=== PATIENT | female | born 1975 | race Hispanic/Latino ===

== ENCOUNTER 2017-09-10 13:37 | Outpatient (CLI) | payer BC ==
[2017-09-10 14:18] LABS: #Basophils 0.1 thou/uL (0.0-0.2); #Eosinphils 0.1 thou/uL (0.0-0.7); #Lymphocytes 2.3 thou/uL (1.20-3.40); #Monocytes 0.4 thou/uL (0.11-0.59); #Neutrophils 5.3 thou/uL (1.40-6.50); %Basophils 0.7 % (0.0-1.0); %Eosinophils 0.8 % (0.0-10.0); %Lymphocytes 28.5 % (21.0-51.0); %Monocytes 4.6 % (0.0-10.0); Hematocrit 38.7 % (36.0-47.0); Red Blood Cell (RBC) Count 4.11 mill/uL (4.20-5.40); White Blood Cell (WBC) Count 8.1 thou/uL (4.8-10.8)
[2017-09-10 14:46] LABS: ALT (SGPT) 18 U/L (8-55); AST (SGOT) 24 U/L (5-34); Alkaline Phosphatase 104 U/L (40-150); Anion Gap 10 mmol/L (10-20); BUN (Urea Nitrogen) 12 mg/dL (7.0-18.7); Bilirubin, Total 0.4 mg/dL (0.2-1.2); Calc. Creatinine Clearance 0 mL/min (70-130); Calcium 9.1 mg/dL (7.8-10.44); Carbon Dioxide 27 mmol/L (22-29); Chloride 107 mmol/L (98-107); Estimated GFR-MDRD 82; Globulin 2.6 g/dL (2.4-3.5); Protein, Total 6.8 g/dL (6.0-8.3)
== END 2017-09-10 13:38 | disposition home or self-care (01) ==
LOC: LABBT 13:37
PROVIDERS: ATTEND Surgery
DX: Z01.812 Encounter for preprocedural laboratory examination (principal); K42.9 Umbilical hernia without obstruction or gangrene
CPT/HCPCS: 80053; 85025

== ENCOUNTER 2017-09-17 07:32 | Day surgery (SDC) | payer BC ==
[2017-09-10 14:07] VITALS: BMI 22.9
[2017-09-17] MEDS ORDERED: CEFAZOLIN/Water 2 GM/20 ML SYRINGE ONE (07:51)
[2017-09-17] MEDS ORDERED: Midazolam HCl 2 mg/2 ml Vial ONE (09:26)
[2017-09-17] MEDS ORDERED: Fentanyl 100 MCG/2 ML VIAL ONE ×2 (09:26→10:59)
[2017-09-17] MEDS ORDERED: Bupivacaine/Epinephrine 0.25% 30 ML VIAL ONE (09:28)
--- NOTE | 2017-09-17 10:32 | OP ---
PREOPERATIVE DIAGNOSIS: Umbilical hernia. SURGEON: Harshal Zuluaga M.D. PROCEDURE PERFORMED: Umbilical hernia repair with mesh. INDICATIONS: A 42-year-old female with a painful umbilical hernia. FINDINGS: We found a 1.2 cm defect, 4.6 cm mesh used. DESCRIPTION OF PROCEDURE: After informed consent was obtained, [facility] and given general mask anesthesia, placed in the supine position. The abdomen was prepped and draped in the usual fashion. Local anesthesia infiltrated subcutaneously and deep and a subumbilica l incision was performed. The subcu divided sharply. The hernia sac was dissected from surrounding subcutaneous tissue sharply down to the fascia, then excised. The contents reduced. Reduction was m aintained utilizing 4.6 cm mesh. Hemostasis achieved with electrocautery. The mesh was secured to t he abdominal fascia with interrupted 0 Ethibond. The umbilical skin was then sutured to the fascia w ith interrupted 3-0 Vicryl to restore umbilical contour, and the skin of the umbilicus closed with in terrupted 4-0 Vicryl. Steri-Strips applied. Sterile bandage applied. The patient tolerated the pro cedure well and transferred to recovery in good condition. Sponge and needle count verified correct x2.
[2017-09-17] MEDS ORDERED: HYDROcodone/Acetaminophen 5/325 mg Tablet ONE (12:00)
[2017-09-17] MEDS ORDERED: Lidocaine 1% PF 5 ML VIAL ONE (14:27)
[2017-09-17] MEDS ORDERED: Ondansetron HCl/PF 4 MG/2 ML Vial ONE (14:27)
[2017-09-17] MEDS ORDERED: Dexamethasone 20 MG/5 ML VIAL ONE (14:27)
[2017-09-17] MEDS ORDERED: Propofol 200 MG/20 ML VIAL ONE (14:27)
== END 2017-09-17 13:35 | disposition home or self-care (01) ==
LOC: SDC 07:32
PROVIDERS: ATTEND Surgery
PROC: 0WUF0JZ Supplement Abdominal Wall with Synthetic Substitute, Open Approach (ICD-10-PCS; principal; 2017-09-17)
DX: K42.9 Umbilical hernia without obstruction or gangrene (principal); Z90.710 Acquired absence of both cervix and uterus; Z90.49 Acquired absence of other specified parts of digestive tract; Z98.890 Other specified postprocedural states
CPT/HCPCS: 96374; C1781; J1100; J2001; J2250; J2405; J2704; J3010

== ENCOUNTER 2018-05-07 13:09 | Outpatient (CLI) | payer BC | END 2018-05-07 13:10 | disposition home or self-care (01) | LOC: BICMAMMO 13:09 | PROVIDERS: ATTEND Physician Assistant | DX: Z12.31 Encounter for screening mammogram for malignant neoplasm of breast (principal) | CPT/HCPCS: 77063; 77067 ==

== ENCOUNTER 2019-08-28 13:40 | Outpatient (CLI) | payer BC ==
--- NOTE | 2019-08-28 14:29 | ULT ---
TRANSABDOMINAL PELVIC ULTRASOUND: TECHNIQUE: Transabdominal imaging of the pelvis is performed. Ovaries are interrogated with grayscale, color william w, Doppler imaging and spectral wave. HISTORY: Previous partial hysterectomy. Pelvic pain. FINDINGS: Uterus is not appreciated. No masses or fluid collections in the pelvis. Right ovary: Normal cortical echotexture, measuring 1.8 x 2.4 x 2.7 cm. Left ovary: Normal echotexture, measuring 2.0 x 2.6 x 2.5. Ovarian Doppler: Vascular flow to both ovaries. IMPRESSION: Unremarkable pelvic ultrasound. Transcribed Date/Time: 08/28/2019 2:32 PM
--- NOTE | 2019-08-28 15:02 | MMO ---
Bilateral MAMMO Bilat Screen [facility]. CLINICAL HISTORY: Patient is 44 years old and is seen for screening. The patient has no family history of breast cancer. The patient has no personal history of cancer. VIEWS: The views performed were: bilateral craniocaudal with tomosynthesis and bilateral mediolateral oblique with tomosynthesis. FILMS COMPARED: The present examination has been compared to prior imaging studies performed at [facility] on 02/27/2013 and 05/07/2018. This study has been interpreted with the assistance of computer-aided detection. MAMMOGRAM FINDINGS: The breasts are heterogeneously dense, which could obscure a lesion on mammography. There are no suspicious masses, suspicious calcifications, or new areas of architectural distortion. IMPRESSION: THERE IS NO MAMMOGRAPHIC EVIDENCE OF MALIGNANCY. A ROUTINE FOLLOW-UP MAMMOGRAM IN 1 YEAR IS RECOMMENDED. THE RESULTS OF THIS EXAM WERE SENT TO THE PATIENT. ACR BI-RADS Category 1 - Negative MAMMOGRAPHY NOTE: 1. A negative mammogram report should not delay a biopsy if a dominant of clinically suspicious mass is present. 2. Approximately 10% to 15% of breast cancers are not detected by mammography. 3. Adenosis and dense breasts may obscure an underlying neoplasm. Reported by: Camila KUNZ Electonically Signed: [id number]
== END 2019-08-28 13:41 | disposition home or self-care (01) ==
LOC: BICMAMMO 13:40
PROVIDERS: ATTEND Physician Assistant
DX: Z12.31 Encounter for screening mammogram for malignant neoplasm of breast (principal); R10.2 Pelvic and perineal pain
CPT/HCPCS: 76856; 77063; 77067; 93976

== ENCOUNTER 2021-04-04 12:36 | Outpatient (CLI) | payer BC | END 2021-04-04 12:37 | disposition home or self-care (01) | LOC: BICMAMMO 12:36 | PROVIDERS: ATTEND Physician Assistant | DX: Z12.31 Encounter for screening mammogram for malignant neoplasm of breast (principal) | CPT/HCPCS: 77063; 77067 ==

== ENCOUNTER 2022-02-22 19:10 | Emergency (ER) | payer OTHER, SELFPAY ==
[2022-02-22] MEDS ORDERED: Diazepam 5 MG TAB ONE (20:02)
[2022-02-22] MEDS ORDERED: Ketorolac Tromethamine 30 MG/ML VIAL ONE (20:02)
== END 2022-02-22 21:31 | disposition home or self-care (01) ==
LOC: ERS 19:10
DX: S39.012A Strain of muscle, fascia and tendon of lower back, initial encounter (principal); S16.1XXA Strain of muscle, fascia and tendon at neck level, initial encounter; M25.552 Pain in left hip; V53.5XXA Driver of pick-up truck or van injured in collision with car, pick-up truck or van in traffic accident, initial encounter
CPT/HCPCS: 72072; 72100; 72125; 96372; J1885

== ENCOUNTER 2022-05-10 11:08 | Outpatient (CLI) | payer BC | END 2022-05-10 11:09 | disposition home or self-care (01) | LOC: BICMAMMO 11:08 → MERGE 15:30 | PROVIDERS: ATTEND Physician Assistant | DX: Z12.31 Encounter for screening mammogram for malignant neoplasm of breast (principal) | CPT/HCPCS: 77063; 77067 ==

== ENCOUNTER 2025-06-01 09:29 | Outpatient (CLI) | payer OTHER | END 2025-06-01 09:30 | disposition home or self-care (01) | LOC: ULT 09:29 | PROVIDERS: ATTEND Nurse Practitioner Family | DX: R10.10 Upper abdominal pain, unspecified (principal); R10.13 Epigastric pain; K59.00 Constipation, unspecified; K83.8 Other specified diseases of biliary tract | CPT/HCPCS: 74018; 76700 ==